=== PATIENT | female | born 1990 | race Caucasian/White ===

== ENCOUNTER 2017-01-25 19:37 | Emergency (ER) | payer BC, OTHER ==
[~2017-01-25] VITALS: Ht 170.2 cm; Wt 65.0 kg
[~2017-01-25 19:37] MED LIST: IUD
[2017-01-25 20:01] VITALS: Ht 170.2 cm; Wt 65.0 kg
[2017-01-25] MEDS ORDERED: IBUP-1542 PO (21:54)
[2017-01-25] MEDS ORDERED: HYDR-906 PO (21:54)
[2017-01-25] MEDS ORDERED: CYCL-319 PO (21:54)
--- NOTE | 2017-01-25 22:09 | ERD ---
ER Documentation Chief Complaint Date/Time DATE: 01/25/17 TIME: 21:56 Chief Complaint PT reports R shoulder pain for a month that worsened for last 2 days HPI 26-year-old female presents here to emergency department for complaints of right shoulder pain for 1 month now, worse the last 2 days. Patient is complaining pain, sharp pain, 6/10 scale, not better or worse with anything. Patient did not take any medications to help with symptoms. ROS All systems reviewed and are negative except as per history of present illness. Medications Home Meds Active Scripts Hydrocodone/Acetaminophen (Cumberland 5-325 Tablet) 1 Each Tablet, 1 TAB PO Q6H Y for SEVERE PAIN LEVEL 7-10, #20 TAB Prov:REGAN HEARD NP 01/25/17 Cyclobenzaprine Hcl* (Cyclobenzaprine Hcl*) 10 Mg Tablet, 10 MG PO TID, #15 TAB Prov:REGAN HEARD NP 01/25/17 Ibuprofen* (Motrin*) 600 Mg Tab, 600 MG PO Q6H Y for PAIN AND OR ELEVATED TEMP, #30 TAB Prov:REGAN HEARD PERSONNEL WORKER 01/25/17 Reported Medications [Iud] No Conflict Check 08/02/13 Allergies Allergies: Coded Allergies: No Known Allergy (Verified , 06/15/13) PMhx/Soc History of Surgery: Yes (, breast augmentation, section) Anesthesia Reaction: No Hx Neurological Disorder: No Hx Respiratory Disorders: No Hx Cardiac Disorders: No Hx Psychiatric Problems: No Hx Miscellaneous Medical Probl: No Hx Alcohol Use: No Hx Substance Use: No Hx Tobacco Use: No Smoking Status: Never smoker FmHx Family History: No coronary disease, No diabetes, No other Physical Exam Vitals Vital Signs Date Time Temp Pulse Resp B/P Pulse Ox O2 Delivery O2 Flow Rate FiO2 01/25/17 20:01 98.3 64 16 106/62 100 Physical Exam GENERAL: The patient is well developed and appropriate for usual state of health, in no apparent distress. CHEST: Clear to auscultation bilaterally. There are no rales, wheezes or rhonchi. HEART: Regular rate and rhythm. No murmurs, clicks, rubs or gallops. No S3 or S4. ABDOMEN: Soft, nontender and nondistended. Good bowel sounds. No rebound or guarding. No gross peritonitis. No gross organomegaly or masses. No Ibarra sign or McBurney point tenderness. BACK: No midline or flank tenderness. Muscle is noted in the right upper shoulder area, tenderness on palpation, no deformity noted, able to do full range of motion of the right shoulder. EXTREMITIES: Equal pulses bilaterally. There is no peripheral clubbing, cyanosis or edema. No focal swelling or erythema. Full range of motion. Grossly neurovascularly intact. NEURO: Alert and oriented. Cranial nerves 2-12 intact. Motor strength in all 4 extremities with 5/5 strength. Sensation grossly intact. Normal speech and gait. SKIN: There is no apparent rash or petechia. The skin is warm and dry. HEMATOLOGIC AND LYMPHATIC: There is no evidence of excessive bruising or lymphedema. No gross cervical, axillary, or inguinal lymphadenopathy. Procedures/MDM Medical Decision Making: Patient's pain is most likely consistent with a muscle strain on the right upper shoulder area.. There is no suspicion for neurovascular compromise. Patient has intact sensation and circulation of the affected extremity. There is low suspicion for septic arthritis. Patient does not have any fever. Radiology exams of the affected area does not show any fracture or dislocation. Disposition: Home. Patient is given prescription for ibuprofen for pain, Flexeril for muscle spasms, Cumberland for severe pain. Patient was advised to elevate the affected area and apply ice on affected area. Patient was advised that if symptoms are worse, numbness, tingling, high fever, unable to move joint , worsening symptoms, to return to emergency department immediately. Otherwise, patient is advised to follow up with the primary care doctor in 5-7 days for reevaluation of symptoms. Disclaimer: Inadvertent spelling and grammatical errors are likely due to EHR/ dictation software use and do not reflect on the overall quality of patient care. Also, please note that the electronic time recorded on this note does not necessarily reflect the actual time of the patient encounter. Departure Diagnosis: Primary Impression: Shoulder pain Chronicity: acute Laterality: right Qualified Code: M25.511 - Acute pain of right shoulder Condition: Stable Patient Instructions: Shoulder Pain (Uncertain Cause) Referrals: DANIEL SILVA MD (PCP) REGAN HEARD NP Jan 25, 2017 22:06
== END 2017-01-25 22:13 | disposition home or self-care (01) ==
LOC: FTE 19:37
DX: M25.511 Pain in right shoulder (principal)
CPT/HCPCS: 99284